=== PATIENT | female | born 1985 | race Two or more races ===

== ENCOUNTER 2016-12-07 12:35 | Emergency (ER) | payer MEDICAID, OTHER ==
[~2016-12-07] VITALS: Ht 167.6 cm; Wt 98.4 kg
[2016-12-07 12:38] VITALS: BP 140/76
[2016-12-07] MEDS ORDERED: METHOCARBAMOL 500 MG TAB PO ONE (13:30)
[2016-12-07] MEDS ORDERED: KETOROLAC TROMETH 60MG/2ML VIAL IM ONE (13:30)
== END 2016-12-07 14:25 | disposition home or self-care (01) ==
LOC: ER 12:35
DX: S39.012A Strain of muscle, fascia and tendon of lower back, initial encounter (principal); W01.0XXA Fall on same level from slipping, tripping and stumbling without subsequent striking against object, initial encounter; Y93.89 Activity, other specified; Y92.89 Other specified places as the place of occurrence of the external cause; Y99.8 Other external cause status
CPT/HCPCS: 72110; 96372; 99284; J1885

== ENCOUNTER 2023-12-26 10:03 | Emergency (ER) | payer OTHER, MEDICAID ==
[~2023-12-26] VITALS: Ht 167.6 cm; Wt 92.9 kg
[2023-12-26 10:34] VITALS: BP 135/87; PULSE 72; RESP 18; TEMP 98.1; O2SAT 98
[2023-12-26] MEDS ORDERED: PROM1SOL4 PO (12:10)
[2023-12-26] MEDS ORDERED: GUAI600T78 PO (12:10)
== END 2023-12-26 12:23 | disposition home or self-care (01) ==
LOC: ER 10:03
DX: B34.9 Viral infection, unspecified (principal)
CPT/HCPCS: 71046

== ENCOUNTER 2024-08-14 19:45 | Emergency (ER) | payer OTHER, MEDICAID ==
[~2024-08-14] VITALS: Ht 167.6 cm; Wt 90.7 kg
[~2024-08-14 19:45] MED LIST: GUAI600T78 PO; PROM1SOL4 PO
--- NOTE | 2024-08-14 20:17 | ED.PDOC ---
VP SECURITY HPI Comments HPI: Poor Historian. HPI: 38-year-old female presents with a chief complaint of left ovary pain x onset Monday (4 days ago) and lesions to her left labia x onset Monday (2 days ago). Patient reports that she initially went to urgent care, but was referred to the ER to rule out ovarian torsion . Patient has had ovarian and cervical cancer with a partial hysterectomy and right oophorectomy. 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 Patient has lesions to the outer labia. Patient mentions that her last pap smear was in 2019 and she has had no other STD diagnoses in the past. Patient mentions that she take Propranolol for anxiety. Patient states she is with the same sexual partner for the last three years. PMHx: Cervical Cancer, Ovarian Cancer, Chronic Migraines, Elevated Liver Enzymes, Anxiety PSHx: Right Oophorectomy, Partial Hysterectomy Allergies: Codeine Triage Vital Signs: BP: 130/85 HR: 80 Temp: 98.7F SpO2: 98% RR: 18 REVIEW OF SYSTEMS: CONSTITUTIONAL: Denies acute: fever, diaphoresis, chills, generalized weakness. HEAD: Denies acute: headache, photophobia Eyes: Denies acute: Double vision, vision loss, eye pain, eye discharge. EARS: Denies acute: tinnitus, hearing loss, ear discharge, ear pain, THROAT: Denies acute: sore throat, swelling, difficulty swallowing , pain with swallowing, change in voice. NECK: Denies acute: neck pain, neck swelling, stiff neck. HEART: Denies acute : chest pain, palpitations, LUNGS: Denies acute: SOB, wheezing, cough, hemoptysis ABDOMEN: Denies acute: Nausea, Vomiting, diarrhea, melena , hematemesis, hematochezia SKIN: Denies acute: rash, redness, lesions, itchiness. EXTREMITIES: Denies acute: calf pain, numbness, tingling, weakness, denies pain in extremity. Denies acute: Low back pain. Neuro: Denies acute: focal neurological deficit, motor or sensory focal neurological deficit, tremors, seizure like activity, confusion, dizziness, change in mental status, loss of bowel or bladder function, cauda equina like symptoms. : Denies acute: dysuria, hematuria, flank pain, increase in urinary frequency. PSYCH: Denies acute: hallucination, suicidal ideation, homicidal ideation. FEMALE: Denies acute: abnormal vaginal bleeding, foul odor, unusual discharge. PHYSICAL EXAM: General: no acute distress, awake and alert. Head: normocephalic, atraumatic. Neck: supple, trachea is midline, no swelling. Throat: Normal phonation. Eyes:, no erythema, no purulent discharge, no proptosis, no icterus. Heart: regular rate, regular rhythm, no significant murmur appreciated. Lungs: no apparent respiratory distress, Able to speak in full sentences. No wheezing, no rhonchi, no crackles. No stridors Clear to auscultation bilaterally. Abdomen: Left lower quadrant tender to palpation, non distended, soft, no guarding, no rebound, + bowel sounds. Neuro: Awake, Alert, oriented to name, self, situation, follows commands GCS=15. Speech is normal. Skin: no petechia, no purpura, no cyanosis, non-pale, not jaundice. Lower extremities: --no - Pitting edema no deformity, no focal swelling, no calf TTP. Makes eye contact. moves all four extremities. Face: no apparent facial droop. Ambulating in the ED independently. Pelvic exam performed in the presence of a director of industrial relations nurse Ly. Speculum exam was performed. Cultures were obtained. No unusual findings. Patient wanted me to look at these lesions. They are actually not present on her labia but they are in the inguinal area. Minimal few spots that are nonspecific non vesicular non bulging no associated erythema no presence of discharge on these lesions. There were no more than five lesions that are 3 mm in diameter. No swelling in the area. I recommended the patient to follow up with the OB Gyne doctor which she has access to vocally she states treatment. Chief Complaint: Pelvic Pain Time Seen by MD: 20:05 Reviewed Notes: Nurses Notes, Allergies Home Meds Active Scripts Valacyclovir HCl (Valacyclovir HCl) 1 Gm Tab, 1 GM PO Q12HR for 10 Days, #20 TAB Prov:CONSUELO ORTEZ DO 08/15/24 Guaifenesin (Mucinex) 600 Mg Tab, 1 TAB PO BID for 7 Days, #14 TAB 0 Refills Prov:HIREN HANCOCK NP 12/26/23 Promethazine-Dm (Promethazine Dm 6.25-15 mg/5Ml) 1 Charlene Charlene, 5 ML PO TIDPRN PRN for 10 Days, #150 ML 0 Refills Prov:HIREN HANCOCK WASHERETTE MACHINE OPERATOR 12/26/23 Information Source: Patient Past Medical History PAST MEDICAL HISTORY: Cancer Surgical History: Hysterectomy NURSERY SUPERVISOR History: No Pertinent NURSERY SUPERVISOR History Family History Family History: Unknown Social History Smoker: Non-Smoker Alcohol: Denies ETOH Use Drugs: Denies Drug Use Lives In: Home Was a procedure done? Was a procedure done?: No Differential Diagnosis (NURSERY SUPERVISOR) Vaginal Bleeding: Other (As far as abdominal pain. DDX include Diverticulitis, colitis, gastroenteritis, acute abdomen, SBO, enteritis, constipation, volvulus, appendicitis, Gallbladder disease, choledocolithiasis, ascending cholangitis, pancreatitis, intraAbdominal mass/neoplasm, hepatitis, UTI, pylonephritis, kidney stone, aneurysm, dissection, Inflammatory bowel disease, gastroparesis, ischemic bowel, ovarian torsion, ovarian cyst/mass, tubo-ovarian abscess, , ectopic , PID, STD.), N/A Mass / Lesion: Bartholin Abscess, Bartholin Cyst, Hidradenitis Suppurativa, Perianal Abscess, PID, Subcutaneous Abscess, Vaginitis - Bacterial, Vaginitis - Candidal, Vaginitis - Herpetic, Vaginitis - Trichomonas Vaginal Discharge: Pinworms, Vaginitis - Atrophic, Vaginitis - Bacterial, Vaginitis - Candidal, Vaginitis - Contact, Vaginitis - Herpes, Vaginitis - Trichomonas X-Ray, Labs, Meds, VS Vital Signs Date Time Temp Pulse Resp B/P (MAP) Pulse Ox O2 Delivery O2 Flow Rate FiO2 08/14/24 20:07 98.7 80 18 130/85 (100) 98 Lab Test 08/15/24 01:26 08/14/24 20:41 08/14/24 20:10 Range/Units Vaginal WBC (Wet Prep) Few Vaginal RBC (Wet Prep) None seen Vaginal Epithelial Cells (Wet Prep) Moderate Vaginal Bacteria (Wet Prep) Moderate Vaginal Trichomonas (Wet Prep) Not present Vaginal Yeast (Wet Prep) None seen Vaginal Clue Cells (Wet Prep) Moderate White Blood Count 9.8 4.4-10.8 10^3/uL Red Blood Count 5.41 H 4.0-5.20 10^6/uL Hemoglobin 14.5 12.2-16.2 g/dL Hematocrit 43.2 36.0-46.0 % Mean Corpuscular Volume 79.9 L 80.0-100.0 fL Mean Corpuscular Hemoglobin 26.8 L 28.0-32.0 pg Mean Corpuscular Hemoglobin Concent 33.6 32.0-36.0 g/dL Red Cell Distribution Width 13.7 11.8-14.3 % Platelet Count 273 140-450 10^3/uL Mean Platelet Volume 8.7 6.9-10.8 fL Neutrophils (%) (Auto) 66.0 37.0-80.0 % Lymphocytes (%) (Auto) 25.2 10.0-50.0 % Monocytes (%) (Auto) 6.9 0.0-12.0 % Eosinophils (%) (Auto) 0.9 0.0-7.0 % Basophils (%) (Auto) 1.0 0.0-2.0 % Neutrophils # (Auto) 6.5 1.6-8.6 10 ^3/uL Lymphocytes # (Auto) 2.5 0.4-5.4 10 ^3/uL Monocytes # (Auto) 0.7 0-1.3 10 ^3/uL Eosinophils # (Auto) 0.1 0-0.8 10 ^3/uL Basophils # (Auto) 0.1 0-0.2 10 ^3/uL Nucleated Red Blood Cells 0.1 % Sodium Level 139 136-145 mmol/L Potassium Level 3.9 3.5-5.1 mmol/L Chloride Level 104 98-107 mmol/L Carbon Dioxide Level 26 20-31 mmol/L Anion Gap 9 5-15 Blood Urea Nitrogen 12 9-23 mg/dL Creatinine 0.72 0.550-1.02 mg/dL Glomerular Filtration Rate Calc 109 >90 mL/min BUN/Creatinine Ratio 16.7 10.0-20.0 Serum Glucose 103 74-106 mg/dL Lactic Acid Level 0.7 0.4-2.0 mmol/L Calcium Level 10.4 8.7-10.4 mg/dL Total Bilirubin 0.7 0.2-1.0 mg/dL Aspartate Amino Transferase (AST) 16 13-40 U/L Alanine Aminotransferase (ALT) 28 7-40 U/L Alkaline Phosphatase 71 46-116 U/L Total Protein 8.1 5.7-8.2 g/dL Albumin 5.1 H 3.2-4.8 g/dL Rapid Plasma Reagin Pending Urine Color Yellow Yellow Urine Clarity Turbid H Clear Urine pH 5.5 5.0-9.0 Urine Specific Cora 1.030 1.001-1.035 Urine Protein Trace H Negative Urine Ketones Trace Negative Urine Blood Negative Negative /uL Urine Nitrite Negative Negative Urine Bilirubin Negative Negative Urine Urobilinogen 2 H Negative mg/dL Urine Leukocyte Esterase Negative Negative /uL Urine RBC 2 0 - 4 /hpf Urine Microscopic WBC 3 0-5 /HPF Urine Squamous Epithelial Cells Mod <5 /hpf Urine Bacteria None seen None Seen /hpf Urine Mucus Few None Seen Urine Glucose Normal Normal mg/dL Chlamydia trachomatis (ALO) Pending Neisseria gonorrhoeae (ALO) Pending PATIENT: KEARA DEWEY RACCT: [id number]: [id number] : 1985 LOC: ER ROOM / BED: / AGE / SEX: 38 / F ADM STATUS: REG ER SERVICE 09 ORDERING PHYSICIAN: CONSUELO ORTEZ DO PROCEDURE(s): PELUS - PELVIC REASON: Left lower quadrant pain rule out ovarian torsion versus oth ORDER NUMBER(s): [id number], ACCESSION NUMBER(s): [id number] Procedure: US PELVIC Study Date and Requested Time: 08/14/2024 08:43 PM Study Description: US PELVIC History: Left lower quadrant pain rule out ovarian torsion versus oth Comparison: CT abdomen and pelvis 08/14/2024 Technique: Multiple transabdominal and transvaginal high resolution hope-scale images obtained of the uterus and adnexa with color Doppler for evaluation of adnexal blood flow and vascularity as indicated. Findings: The uterus and right ovary are not visualized. The left ovary measures 3.7 x 4.4 x 2 cm with normal color doppler flow. 1.3 x 1.3 x 0.9 cm heterogeneous structure with peripheral vascularity within the left ovary. 2 x 1.6 x 1.9 cm left ovarian cyst is noted. No free fluid within the pelvis. Impression: The uterus and right ovary are not visualized. 2 cm left ovarian cyst. Additional 1.3 x 1.3 x 0.9 cm heterogeneous left ovarian lesion with peripheral vascularity is noted. ATED BY: MARY KAY NOVOA DO DICTATED DATE/TIME: 08/14/242131 SIGNED BY: MARY KAY NOVOA DO SIGNED DATE/TIME: 08/14/242131 PATIENT: KEARA DEWEY RACCT: [id number] UNIT: [id number] : 1985 LOC: ER ROOM / BED: / AGE / SEX: 38 / F ADM STATUS: REG ER SERVICE 09 ORDERING PHYSICIAN: CONSUELO ORTEZ DO PROCEDURE(s): ABPL - CT AB PEL WO CON-NO ORAL OR IV REASON: Left lower quadrant pain, history of partial hysterectomy ORDER NUMBER(s): [id number], ACCESSION NUMBER(s): [id number] Procedure: CT CT AB PEL WO CON-NO ORAL OR IV 08/14/2024 08:24 PM Indication: Left lower quadrant pain, history of partial hysterectomy Comparison Study: None Technique: Axial images were obtained and reformatted in coronal and sagittal planes. All CT scans at this medical facility are performed using dose modulation techniques as appropriate to a performed exam including the following: Automated exposure control was utilized; adjustment of the MA and/or KV according to patient size; and use of iterative reconstruction technique. CT Dose: CTDI volume is 11.8 mGy. Dose-length product is 629.87 mGy*cm FINDINGS: Lower Chest: Unremarkable. Hepatobiliary: Hepatic steatosis. Spleen: Unremarkable. Pancreas: Unremarkable. Adrenal Glands: Unremarkable. tract: The kidneys are normal in size bilaterally without hydronephrosis . A 3 mm nonobstructing renal lower pole noted. The urinary bladder is unremarkable. GI tract: The stomach is grossly normal in appearance. No evidence of small bowel obstruction. The large bowel is unremarkable. The appendix is normal. Lymphatics: No mesenteric, retroperitoneal or periportal lymphadenopathy. Vasculature: The abdominal aorta is normal in in caliber. Pelvic Organs: The uterus is surgically absent. No adnexal lesion is identified. Bones/soft tissues: No acute abnormality. Other: None. IMPRESSION: 1. No CT evidence for acute intra-abdominal or intrapelvic process. Specifically, no evidence of diverticulitis. No hydronephrosis. A subcentimeter nonobstructing left renal stone. 2. Hepatic steatosis. ATED BY: CARMEN VILLA MD DICTATED DATE/TIME: 08/14/242101 SIGNED BY: CARMEN VILLA MD SIGNED DATE/TIME: 08/14/242101 Time of 1ST Reevaluation: 20:35 Reevaluation 1ST: Unchanged Patient Education/Counseling: Diagnosis, Treatment, Prognosis Family Education/Counseling: Diagnosis, Treatment, Prognosis Comments Patient presented with the above HPI.--left lower quadrant----workup was initiated. patient was found with the above mentioned diagnosis. the following medications were ordered: please refer to order lists of meds and tests obtained by myself Dr. Ortez. Patient ED course and VS have been stabilized. Patient has been reassessed in the ED and remained in a stable condition. Pertinent incidental findings were discussed with the patient and/or family. Patient/family voices understanding and is agreeable with plan. Patient has been observed in the ED adequate length of time to insure improvement/stability. Escalation of care considered: Consideration of escalation to observation or admission Pelvic exam was performed. Cultures were obtained. The area of concern for lesions were evaluated on pelvic exam. I started the patient on valacyclovir for possible genital herpes until she is seen by her OB Gyne doctor. Patient was DISCHARGED home in a stable condition. All the reports of any imaging studies that were ordered by myself were reviewed by myself. Departure 1 Departure Time of Disposition: 01:18 Impression: Primary Impression: Left ovarian cyst Additional Impressions: Rash of groin Genital herpes Disposition: HOME / SELF CARE / HOMELESS Condition: Stable Additional Instructions: Additional discharge instructions: You MUST follow-up with your primary care/family doctor in 1 to 2 days. If you are unable to see your primary care/family doctor, please return to our emergency room for re-assessment and re-evaluation in 1 to 2 days. Return to the emergency room here in our facility or to the nearest ER [facility] if your symptoms change or worsen. CONSULTATIONS: you MUST Follow-up for consultation as soon as possible with: -OB Gyne doctor in 1-2 days. Please call for appointment. You MUST call the consultants office yourself to make an appointment. You may need to arrange that through your insurance and/or your primary/family doctor. If you are unable to see the internal control consultant in 1 to 2 days, you must return to our emergency room (or any other ER of your choice) for re-assessment and re- evaluation. Adequate fluid hydration. Please practice safe sex until you are completely ruled out of STDs after he follow up with OB Gyne doctor. Below is a copy of your radiological report for follow up: [place] [id number] Ph: [phone] DIAGNOSTIC IMAGING Diagnostic Imaging Report : [id number] Signed PATIENT: KEARA DEWEY ACCT: [id number] UNIT: [id number] : 1985 LOC: ER ROOM / BED: / AGE / SEX: 38 / F ADM STATUS: REG ER SERVICE 09 ORDERING PHYSICIAN: CONSUELO ORTEZ DO PROCEDURE(s): PELUS - PELVIC REASON: Left lower quadrant pain rule out ovarian torsion versus oth ORDER NUMBER(s): [id number], ACCESSION NUMBER(s): [id number] Procedure: US PELVIC Study Date and Requested Time: 08/14/2024 08:43 PM Study Description: US PELVIC History: Left lower quadrant pain rule out ovarian torsion versus oth Comparison: CT abdomen and pelvis 08/14/2024 Technique: Multiple transabdominal and transvaginal high resolution hope-scale images obtained of the uterus and adnexa with color Doppler for evaluation of adnexal blood flow and vascularity as indicated. Findings: The uterus and right ovary are not visualized. The left ovary measures 3.7 x 4.4 x 2 cm with normal color doppler flow. 1.3 x 1.3 x 0.9 cm heterogeneous structure with peripheral vascularity within the left ovary. 2 x 1.6 x 1.9 cm left ovarian cyst is noted. No free fluid within the pelvis. Impression: The uterus and right ovary are not visualized. 2 cm left ovarian cyst. Additional 1.3 x 1.3 x 0.9 cm heterogeneous left ovarian lesion with peripheral vascularity is noted. ATED BY: MARY KAY NOVOA DO DICTATED DATE/TIME: 08/14/242131 SIGNED BY: MARY KAY NOVOA DO SIGNED DATE/TIME: 08/14/242131 CC: [address] [id number] Ph: [phone] DIAGNOSTIC IMAGING Diagnostic Imaging Report : [id number] Signed PATIENT: KEARA DEWEY ACCT: [id number] UNIT: [id number] : 1985 LOC: ER ROOM / BED: / AGE / SEX: 38 / F ADM STATUS: REG ER SERVICE 09 ORDERING PHYSICIAN: CONSUELO ORTEZ DO PROCEDURE(s): ABPL - CT AB PEL WO CON-NO ORAL OR IV REASON: Left lower quadrant pain, history of partial hysterectomy ORDER NUMBER(s): [id number], ACCESSION NUMBER(s): [id number] Procedure: CT CT AB PEL WO CON-NO ORAL OR IV 08/14/2024 08:24 PM Indication: Left lower quadrant pain, history of partial hysterectomy Comparison Study: None Technique: Axial images were obtained and reformatted in coronal and sagittal planes. All CT scans at this medical facility are performed using dose modulation techniques as appropriate to a performed exam including the following: Automated exposure control was utilized; adjustment of the MA and/or KV according to patient size; and use of iterative reconstruction technique. CT Dose: CTDI volume is 11.8 mGy. Dose-length product is 629.87 mGy*cm FINDINGS: Lower Chest: Unremarkable. Hepatobiliary: Hepatic steatosis. Spleen: Unremarkable. Pancreas: Unremarkable. Adrenal Glands: Unremarkable. tract: The kidneys are normal in size bilaterally without hydronephrosis . A 3 mm nonobstructing renal lower pole noted. The urinary bladder is unremarkable. GI tract: The stomach is grossly normal in appearance. No evidence of small bowel obstruction. The large bowel is unremarkable. The appendix is normal. Lymphatics: No mesenteric, retroperitoneal or periportal lymphadenopathy. Vasculature: The abdominal aorta is normal in in caliber. Pelvic Organs: The uterus is surgically absent. No adnexal lesion is identified. Bones/soft tissues: No acute abnormality. Other: None. IMPRESSION: 1. No CT evidence for acute intra-abdominal or intrapelvic process. Specifically, no evidence of diverticulitis. No hydronephrosis. A subcentimeter nonobstructing left renal stone. 2. Hepatic steatosis. ATED BY: CARMEN VILLA MD DICTATED DATE/TIME: 08/14/242101 SIGNED BY: CARMEN VILLA MD SIGNED DATE/TIME: 08/14/242101 CC: e-Prescriptions Valacyclovir HCl (Valacyclovir HCl) 1 Gm Tab 1 GM PO Q12HR for 10 Days, #20 TAB Prov: CONSUELO ORTEZ DO 08/15/24 Discharged With: Self Critical Care Note Critical Care Time?: No I personally scribed for CONSUELO ORTEZ DO ([email or web address]) on 08/14/24 at 20:17. Electron ically submitted by Austin Carranza ([email or web address]). I personally scribed for CONSUELO ORTEZ DO ([email or web address]) on 08/14/24 at 21:51. Electronically submitted by Austin Carranza ([email or web address]). CONSUELO ORTEZ DO Aug 14, 2024 20:17
[2024-08-14 20:27] LABS: Urine Bacteria None Seen /hpf (None Seen)
[2024-08-14 20:42] LABS: Urine Blood Negative /uL (Negative); Urine Clarity Turbid (Clear); Urine Color Yellow (Yellow); Urine Mucus FEW (None Seen); Urine Protein, UAD TRACE (Negative); Urine Squamous Epithelial Cell MOD /hpf (<5); Urine Urobilinogen 2 mg/dL (Negative); Urine WBC 3 /HPF (0-5); Urine pH 5.5 (5.0-9.0)
[2024-08-14 20:52] LABS: Basophils # (auto) 0.1 10 ^3/uL (0-0.2); Eosinophils # (auto) 0.1 10 ^3/uL (0-0.8); Eosinophils % (auto) 0.9 % (0.0-7.0); Hematocrit 43.2 % (36.0-46.0); Hemoglobin 14.5 g/dL (12.2-16.2); Lymphocytes # (auto) 2.5 10 ^3/uL (0.4-5.4); Lymphocytes % (auto) 25.2 % (10.0-50.0); Mean Corpuscular Hemoglobin 26.8 pg (28.0-32.0); Mean Corpuscular Hgb Conc. 33.6 g/dL (32.0-36.0); Mean Corpuscular Volume 79.9 fL (80.0-100.0); Monocytes # (auto) 0.7 10 ^3/uL (0-1.3); Monocytes % (auto) 6.9 % (0.0-12.0); Neutrophils # (auto) 6.5 10 ^3/uL (1.6-8.6); Nucleated Red Blood Cells % 0.1 %; Platelet Count (auto) 273 10^3/uL (140-450); Red Blood Cells 5.41 10^6/uL (4.0-5.20); Red Cell Distribution Width 13.7 % (11.8-14.3); White Blood Cell 9.8 10^3/uL (4.4-10.8)
--- NOTE | 2024-08-14 21:05 | DVH ---
Procedure: CT CT AB PEL WO CON-NO ORAL OR IV 08/14/2024 08:24 PM Indication: Left lower quadrant pain, history of partial hysterectomy Comparison Study: None Technique: Axial images were obtained and reformatted in coronal and sagittal planes. All CT scans at this medical facility are performed using dose modulation techniques as appropriate t o a performed exam including the following: Automated exposure control was utilized; adjustment of th e MA and/or KV according to patient size; and use of iterative reconstruction technique. CT Dose: CTDI volume is 11.8 mGy. Dose-length product is 629.87 mGy*cm FINDINGS: Lower Chest: Unremarkable. Hepatobiliary: Hepatic steatosis. Spleen: Unremarkable. Pancreas: Unremarkable. Adrenal Glands: Unremarkable. tract: The kidneys are normal in size bilaterally without hydronephrosis . A 3 mm nonobstructing r enal lower pole noted. The urinary bladder is unremarkable. GI tract: The stomach is grossly normal in appearance. No evidence of small bowel obstruction. The la rge bowel is unremarkable. The appendix is normal. Lymphatics: No mesenteric, retroperitoneal or periportal lymphadenopathy. Vasculature: The abdominal aorta is normal in in caliber. Pelvic Organs: The uterus is surgically absent. No adnexal lesion is identified. Bones/soft tissues: No acute abnormality. Other: None. IMPRESSION: 1. No CT evidence for acute intra-abdominal or intrapelvic process. Specifically, no evidence of dive rticulitis. No hydronephrosis. A subcentimeter nonobstructing left renal stone. 2. Hepatic steatosis.
[2024-08-14 21:08] LABS: Alanine Aminotransferase 28 U/L (7-40); Alkaline Phosphatase 71 U/L (46-116); Anion Gap 9 (5-15); Aspartate Aminotransferase 16 U/L (13-40); BUN/Creatinine Ratio 16.7 (10.0-20.0); Bilirubin, Total 0.7 mg/dL (0.2-1.0); Blood Urea Nitrogen 12 mg/dL (9-23); Calcium 10.4 mg/dL (8.7-10.4); Carbon Dioxide 26 mmol/L (20-31); Chloride 104 mmol/L (98-107); Glucose 103 mg/dL (74-106); Potassium 3.9 mmol/L (3.5-5.1); Sodium 139 mmol/L (136-145); Total Protein 8.1 g/dL (5.7-8.2)
[2024-08-14 21:13] LABS: Albumin 5.1 g/dL (3.2-4.8)
--- NOTE | 2024-08-14 21:35 | DVH ---
Procedure: US PELVIC Study Date and Requested Time: 08/14/2024 08:43 PM Study Description: US PELVIC History: Left lower quadrant pain rule out ovarian torsion versus oth Comparison: CT abdomen and pelvis 08/14/2024 Technique: Multiple transabdominal and transvaginal high resolution hope-scale images obtained of the uterus and adnexa with color Doppler for evaluation of adnexal blood flow and vascularity as indicat ed. Findings: The uterus and right ovary are not visualized. The left ovary measures 3.7 x 4.4 x 2 cm with normal color doppler flow. 1.3 x 1.3 x 0.9 cm heterogen eous structure with peripheral vascularity within the left ovary. 2 x 1.6 x 1.9 cm left ovarian cyst is noted. No free fluid within the pelvis. Impression: The uterus and right ovary are not visualized. 2 cm left ovarian cyst. Additional 1.3 x 1.3 x 0.9 cm heterogeneous left ovarian lesion with peripheral vascularity is noted.
[2024-08-15] MEDS ORDERED: VALA1TAB34 PO (01:29)
[2024-08-15 02:17] LABS: Vaginal Trichomonas Not Present
[2024-08-15 02:18] LABS: Vaginal Clue Cells Moderate; Vaginal Epithelial Cells Moderate
[2024-08-15 02:19] LABS: Vaginal Bacteria Moderate
[2024-08-15 02:56] VITALS: BP 122/93; PULSE 82; RESP 18; TEMP 97.8; O2SAT 97
[2024-08-16 08:06] LABS: RPR Non Reactive (Non Reactive)
[2024-08-19 19:06] LABS: Chlamydia Trachomatis, NAA Negative (Negative); Neisseria gonorrhoeae, NAA Negative (Negative)
== END 2024-08-15 02:59 | disposition home or self-care (01) ==
LOC: ER 19:45
DX: A60.09 Herpesviral infection of other urogenital tract (principal); N83.202 Unspecified ovarian cyst, left side; R21 Rash and other nonspecific skin eruption; Z88.8 Allergy status to other drugs, medicaments and biological substances; Z90.710 Acquired absence of both cervix and uterus; Z98.890 Other specified postprocedural states
CPT/HCPCS: 36415; 74176; 76830; 76856; 80053; 81001; 83605; 85025; 86592; 87081; 87210